=== PATIENT | male | born 1980 | race Caucasian/White ===

== ENCOUNTER 2023-12-12 14:12 | Emergency (ER) | payer BC, SELFPAY ==
--- NOTE | 2023-12-12 | ECG_ITS ---
Test Reason : ribl Blood Pressure : / mmHG Vent. Rate : 075 BPM Atrial Rate : 075 BPM P-R Int : 142 ms QRS Dur : 094 ms QT Int : 390 ms P-R-T Axes : 045 001 005 degrees QTc Int : 435 ms Normal sinus rhythm Normal ECG When compared with ECG of 12-DEC-2023 14:59, Left posterior fascicular block is no longer Present Referred By: Mason Mohr Electronically Signed By:LETI MARRERO MD
--- NOTE | ~2023-12-12 | CT_ITS ---
EXAMINATION: CT ABDOMEN AND PELVIS WITH CONTRAST CLINICAL INFORMATION: Right lower quadrant pain COMPARISON: None available. TECHNIQUE: Multidetector volumetric images were obtained from the superior aspect of the liver through the pubic symphysis following administration 100 mL of Omnipaque 350 intravenous contrast. Sagittal and coronal reformatted images were obtained on the technologist's workstation. Oral contrast: No This CT examination was performed using dose optimization techniques as appropriate, variously including the following: *Automated exposure control *Adjustment of mA and/or kV according to patient size (this includes techniques or standardized protocols for targeted exams where dose is matched to indication/reason for exam; i.e. extremities or head) *Use of iterative reconstruction technique DLP: 905 mGy-cm FINDINGS: LUNG BASES: The visualized lung bases are unremarkable. LIVER, GALLBLADDER, AND BILIARY TREE: The liver is normal in size, shape, and attenuation. No focal hepatic lesion or biliary ductal dilatation is present. The gallbladder is unremarkable with no evidence of radiopaque gallstones, gallbladder wall thickening, or obvious pericholecystic inflammatory changes. PANCREAS: Unremarkable. SPLEEN: Unremarkable. ADRENAL GLANDS: Unremarkable. KIDNEYS AND URETERS: The kidneys are normal in size, shape, and attenuation. Small nonobstructing left renal stones measuring 2 and 3 mm in the lower pole. Small bilateral renal cysts. No imaging follow-up recommended. BLADDER: Not optimally distended. There is stranding of the fat adjacent to the dome of the bladder likely from inflammatory process of the sigmoid colon. No abnormal air seen in the bladder to suggest fistula. GASTROINTESTINAL TRACT: Mild diverticulosis of the colon. There is wall thickening of the sigmoid colon. There is stranding of the adjacent fat that extends to the dome of the bladder. Findings are suggestive of mild sigmoid diverticulitis or colitis. The small and large bowel are otherwise unremarkable. The appendix is unremarkable. ABDOMINAL WALL: No significant hernia is appreciated. LYMPH NODES: Normal. VASCULAR: Unremarkable. PELVIC VISCERA: Unremarkable. OSSEOUS STRUCTURES: Mild degenerative changes of the spine. CT/CT abdomen pelvis w IV con IMPRESSION: Inflammatory changes of the sigmoid colon suggestive of diverticulitis or colitis. Inflammatory changes about the dome of the bladder. Small nonobstructing left renal stones. Fleischner guidelines were followed.
[2023-12-12 14:50] VITALS: BP 169/106; PULSE 88; RESP 16; TEMP 37.7; O2SAT 99; BMI 39.8
--- NOTE | 2023-12-12 14:50 | ED_ITS ---
HPI - General Adult General Chief complaint: Abdominal Pain Stated complaint: Abd pain R side 3 days Time Seen by Provider: 12/12/23 16:35 Source: patient, RN notes reviewed and old records reviewed Mode of arrival: ambulatory Limitations: no limitations History of Present Illness HPI narrative: 43-year-old male who denies any past medical history presents for evaluation of right-sided abdominal pain for the last 2 days. Patient's pain started in the right upper quadrant. His pain is now in the entire right midabdomen and radiates around to his back slightly. His pain is constant. He denies any nausea, vomiting or diarrhea. He does endorse feeling somewhat constipated His pain is achy, 4/10 He denies any history abdominal surgeries Denies any chest pain, cough, shortness of breath Patient reports a history of kidney stones but this feels different No other complaints or concerns at this time Related Data Previous Rx's ?Medication ?Instructions ?Recorded amoxicillin 875 mg-potassium 1 tab PO Q12H #14 tabs 12/12/23 clavulanate 125 mg tablet Allergies Allergy/AdvReac Type Severity Reaction Status Date / Time bee pollen [bee stings] Allergy Severe Anaphylaxis Verified 12/12/23 14:53 Review of Systems 2 Constitutional: Constitutional: Denies body ache(s), Denies chills and Denies fever(s) ENT: Denies sore throat Cardiovascular: Cardiovascular: Denies chest pain and Denies dyspnea Respiratory: Respiratory: Denies cough and Denies dyspnea Gastrointestinal: Gastrointestinal: Reports abdominal pain, Reports constipation, Denies diarrhea, Denies loose stools, Denies nausea and Denies vomiting Genitourinary: Genitourinary: Denies dysuria Musculoskeletal: Musculoskeletal: Denies back pain Integumentary/Breasts: Skin/Breast: Denies rash PMFSH Social History Social History Smoked in Last 30 Days: No Use of substances other than those prescribed or required for medical reasons: No Advance Directives: No Advance Directives Information Provided: No Physical Exam ED Vital Signs: Vital Signs - 24 hr 12/12/23 14:50 Temperature 99.9 F Pulse Rate 88 Respiratory Rate 16 Blood Pressure 169/106 H Pulse Oximetry 99 Oxygen Delivery Method Room Air BMI result Body Mass Index 39.8 Const General: healthy appearing, comfortable, no acute distress, alert and awake Nutritional Appearance: well nourished Orientation/consciousness: patient oriented x3 HENMT Head: Yes normocephalic and Yes atraumatic Eyes Eyelids: Yes eyelids normal Conjunctivae: conjunctivae normal Sclerae: sclerae normal Corneas: corneas normal Pupils: Equal, round and reactive pupils present EOM: EOMs intact bilaterally Neck Neck: Yes full ROM Resp Effort & Inspection: normal respiratory effort, able to speak in complete sentences and not labored Cardio Rate: regular rate Rhythm: regular rhythm GI Inspection: No distended Palpation (GI): Soft to palpation, not firm, Tenderness to palpation present (GI) in the RLQ and in the RUQ; not in the LLQ, not in the LUQ and Ruvalcaba's sign negative, no guarding and not rigid Skin General skin exam: elasticity normal Neuro General: patient oriented x3 Cranial nerves: Yes Equal, round and reactive pupils present and Yes Bilaterally intact EOM present Cognition (Neuro): normal cognition Extrem Other: Moving all extremities well without any obvious deformities Course Course Course Narrative: RME performed by Maddy Chavez PA-C. Patient is a 43 year old assigned male at presenting to the emergency department with right upper quadrant abdominal pain. Patient states that he has not been able to have a bowel movement for days and has pain there constantly that is getting worse. Detailed physical exam and review of systems are deferred to the body technician/painter. EKG, labs, imaging, and swabs ordered. Patient placed back in the waiting room pending room availability and results. Reevaluation(s) Reevaluation #1: Patient's CT scan shows acute uncomplicated diverticulitis. Discussed this with the patient. Discussed treatment options including Augmentin and liquid diet. Time: 19:41 Medications Administered Discontinued Medications Generic Name Dose Route Start Last Admin Trade Name Freq PRN Reason Stop Dose Admin Iohexol 100 ml 12/12/23 17:34 12/12/23 17:34 Iohexol 350 Mg/Ml 100 Ml Infus..Btl IV 12/12/23 17:35 100 ml ONCE ONE Administration Medical Decision Making Medical Decision Making MDM Narrative: 43-year-old male presents for evaluation abdominal pain for 3 days. Most likely diagnosis at this time is constipation. He is tender in the right upper quadrant the LFTs are within normal limits, he has no nausea vomiting, so I feel biliary disease is favored to be less likely. He does have some tenderness in the right lower quadrant raising suspicion for appendicitis. He has no white count. Plan for CT scan of the abdomen pelvis to rule this out and better evaluate the patient's abdominal pain. He has a history obstructive uropathy. Plan for UA but he says feels different from his previous kidney stones Differential Diagnosis Differential Diagnoses: The differential diagnosis associated with the presentation includes Constipation Obstructive uropathy Muscle strain Cholelithiasis Cholecystitis Acute appendicitis Muscle strain Admission/Observation Consideration of admission/observation: Escalation of care including admission/observation considered Insert admission for diverticulitis, however the patient's infection is uncomplicated, will treat with Augmentin and diet Lab Data MDM Lab Attestation statement: I reviewed the patient's lab results. No leukocytosis or anemia. Normal platelet count. Patient's sodium is elevated to 147. Potassium within normal limits at 4.8. Chloride is just above normal at 109. Patient's BUN is 17 which is just above normal but his creatinine is within normal limits at 0.99 12/12/23 15:10 12/12/23 15:10 Labs: Lab Results 12/12/23 12/12/23 Range/Units 15:10 17:15 WBC 9.1 (4.8-10.8) X10*3/uL RBC 5.03 (4.60-5.80) X10*6/uL Hgb 16.0 (14.0-18.0) g/dl Hct 44.5 (42.0-52.0) % MCV 88.5 (80.0-98.0) fL MCH 31.8 (27.0-33.0) pg MCHC 36.0 (31.0-36.0) g/dl RDW 12.2 (11.0-16.0) % Plt Count 326 (160-400) X10*3/uL MPV 9.2 L (9.4-12.4) fL Immature Gran % (Auto) 0.4 (0.0-0.4) % Neut % (Auto) 60.0 (45-73) % Lymph % (Auto) 28.4 (20-40) % [facility] % (Auto) 9.4 (2-11) % Eos % (Auto) 1.1 (0-4) % Baso % (Auto) 0.7 (0-2) % Lymph # (Auto) 2.6 (1.2-4.9) X10*3/uL [facility] [place] # (Auto) 0.9 (0.1-1.2) X10*3/uL Eos # (Auto) 0.1 (0.0-0.4) X10*3/uL Baso # (Auto) 0.1 (0.0-0.2) X10*3/uL Abs Immat Gran (auto) 0.04 H (0.00-0.03) X10*3/uL Absolute Neuts (auto) 5.4 (2.0-8.3) x10*3/uL Absolute Nucleated RBC 0.000 (0.0-0.012) X10*3/uL Nucleated RBC % (auto) 0.0 (0.0-0.2) /100WBC Sodium 147 H (135-145) mmol/L Potassium 4.8 (3.3-5.1) mmol/L Chloride 109 H (96-108) mmol/L Carbon Dioxide 25 (22-29) mmol/L Anion Gap 18 (12-20) BUN 17 H (9-16) mg/dL Creatinine 0.99 (0.5-1.4) mg/dL Estim Creat Clear Calc 117.9 Estimated GFR > 60 Random Glucose 102 (60-115) mg/dL Calcium 9.8 (8.4-10.2) mg/dL Magnesium 2.3 (1.6-2.6) mg/dL Total Bilirubin 0.5 (0.0-1.0) mg/dL AST 26 (5-37) U/L ALT 28 (0-40) U/L Alkaline Phosphatase 65 (39-117) U/L Troponin I High Sens < 2.7 (<3.5-35.0) ng/L Total Protein 7.6 (6.5-8.0) g/dL Albumin 4.3 (3.5-5.0) g/dL Urine Color Yellow Urine Appearance Clear Urine pH 6.5 (5.0-9.0) Ur Specific [place] 1.025 (1.005-1.025) Urine Protein Negative (Neg-Trace) mg/dL Urine Glucose (UA) Negative (Negative) mg/dL Urine Ketones Trace (Negative) mg/dL Urine Blood Negative (Negative) Urine Nitrite Negative (Negative) Ur Leukocyte Esterase Negative (Negative) Influenza Type A (PCR) NEGATIVE (Negative) Influenza Type B (PCR) NEGATIVE (Negative) RSV RNA Qual (PCR) NEGATIVE (Negative) SARS-CoV-2 RNA (RT-PCR) NEGATIVE (Negative) Independent Interpretation I performed an independent interpretation of an: CT Scan Interpretation: Agree with Radiology interpretation, uncomplicated diverticulitis Radiology Impression Discussion of test interpretation with radiology: I have reviewed the radiologist's reading. Radiologist Impression: CT/CT abdomen pelvis w IV con IMPRESSION: Inflammatory changes of the sigmoid colon suggestive of diverticulitis or colitis. Inflammatory changes about the dome of the bladder. Small nonobstructing left renal stones. Fleischner guidelines were followed. Discharge Plan Discharge Clinical Impression: Abdominal pain, Diverticulitis Patient Disposition: Home, Self-Care Instructions: Diverticulitis (ED), Diverticulitis Diet (ED) Additional Instructions: Your CT scan showed findings consistent with diverticulitis. This is an infection of your large intestine Take Augmentin twice daily for the next 7 days I recommend a liquid diet tomorrow and possibly the following day if you are still having lot of pain Return for new or worsening symptoms Prescriptions: New amoxicillin-pot clavulanate 875-125 mg tablet 1 tab PO Q12H Qty: 14 0RF Print Language: Indian
--- NOTE | 2023-12-12 14:52 | ECG_ITS ---
Test Reason : abd pain Blood Pressure : / mmHG Vent. Rate : 071 BPM Atrial Rate : 071 BPM P-R Int : 132 ms QRS Dur : 098 ms QT Int : 400 ms P-R-T Axes : 000 179 174 degrees QTc Int : 434 ms Suspect limb lead reversal, interpretation assumes no reversal Normal sinus rhythm Left posterior fascicular block Inferior infarct , age undetermined Abnormal ECG No previous ECGs available Repeat EKG Referred By: Maddy Chavez Electronically Signed By:LETI MARRERO MD
[2023-12-12 15:16] LABS: MANUAL DIFF FLAG NO
[2023-12-12 15:17] LABS: Basophils Absolute Auto 0.1 X10*3/uL (0.0-0.2); Basophils Percent Auto 0.7 % (0-2); Eosinophils Absolute Auto 0.1 X10*3/uL (0.0-0.4); Eosinophils Percent Auto 1.1 % (0-4); Hematocrit 44.5 % (42.0-52.0); Imm Gran Abs Auto 0.04 X10*3/uL (0.00-0.03); Imm Gran Pct Auto 0.4 % (0.0-0.4); Lymphocytes Absolute Auto 2.6 X10*3/uL (1.2-4.9); Lymphocytes Percent Auto 28.4 % (20-40); Mean Corpuscular Hemoglobin 31.8 pg (27.0-33.0); Mean Corpuscular Volume 88.5 fL (80.0-98.0); Mean Platelet Volume 9.2 fL (9.4-12.4); Monocytes Absolute Auto 0.9 X10*3/uL (0.1-1.2); Monocytes Percent Auto 9.4 % (2-11); Neutrophils Absolute Auto 5.4 x10*3/uL (2.0-8.3); Platelet Count 326 X10*3/uL (160-400); Red Blood Count 5.03 X10*6/uL (4.60-5.80); Red Cell Distribution Width 12.2 % (11.0-16.0); White Blood Count 9.1 X10*3/uL (4.8-10.8)
[2023-12-12 15:37] LABS: Alanine Aminotransferase 28 U/L (0-40); Albumin Level 4.3 g/dL (3.5-5.0); Alkaline Phosphatase 65 U/L (39-117); Anion Gap 18 (12-20); Aspartate Amino Transferase 26 U/L (5-37); Bilirubin Total 0.5 mg/dL (0.0-1.0); Blood Urea Nitrogen 17 mg/dL (9-16); Calcium 9.8 mg/dL (8.4-10.2); Carbon Dioxide 25 mmol/L (22-29); Chloride 109 mmol/L (96-108); Creatinine Clr Calc Pharmacy 117.9; Estimated Glomerular Filt Rate > 60; Glucose Random 102 mg/dL (60-115); Magnesium 2.3 mg/dL (1.6-2.6); Potassium 4.8 mmol/L (3.3-5.1); Sodium 147 mmol/L (135-145); Total Protein 7.6 g/dL (6.5-8.0)
[2023-12-12 15:40] LABS: Troponin-I High Sensitivity < 2.7 ng/L (<3.5-35.0)
[2023-12-12 15:55] LABS: Influenza A PCR NEGATIVE (Negative); Influenza B PCR NEGATIVE (Negative); Resp Syncy Virus RNA Qual PCR NEGATIVE (Negative); SARS COV2 PCR INHOUSE NEGATIVE (Negative)
--- NOTE | 2023-12-12 17:19 | PC.NURSE ---
a&ox4. vss and up to date. pt from home d/t RUQ x 2 days. denies radiation/n/v/d/urinary sx aside from stating that his bladder feels full after urinating. abd tender upon palpation. UA obtained/sent to lab. 20gIV placed in the right AC. pt waiting to go to CT at this time. no sob/wob noted. respirations even and unlabored. plan of care ongoing. call de león placed within reach.
[2023-12-12 17:24] LABS: Appearance Urine Clear; Color Urine Yellow; Glucose Urine UA Negative (Negative); Leukocyte Esterase Urine Negative (Negative); Nitrite Urine Negative (Negative); PH 6.5 (5.0-9.0); Specific Gravity - Urine 1.025 (1.005-1.025); Urine Blood Negative (Negative); Urine Ketones Trace mg/dL (Negative); Urine Protein Negative (Neg-Trace)
[2023-12-12] MEDS: iohexoL 350 MG/ML 100 ML INFUS..BTL IV (17:34)
--- OUTSIDE RECORDS SUMMARY | 2023-12-12 18:29 | XMS_ITS | Continuity of Care Document ---
Author Organization [facility] Address [address] [place] [address]- Care Team Providers Care Papeterie Table Assembler Name Role Phone Sunny Landis MD Primary Care Physician [id number] Date(s): 07/15/23 - 08/14/23 [facility] [address] [address]- [place] Attending Physician: Nancie Martin Admitting Physician: Nancie Martin Referring Physician: AdmtrNancie Allergies, Adverse Reactions, Alerts Substance Reaction Severity Status Bee Stings Active Medications cyclobenzaprine 5 mg oral tablet TAKE 1 TO 2 TABLETS BY MOUTH 3 TIMES A DAY NEEDED FOR MUSCLE SPASM Start Date: 09/19/22 Status: Ordered sertraline 100 mg oral tablet 0.5 tablet = 50 mg, By Mouth, Daily, take 50 mg po daily, 0 Refills, Maintenance, 03/22/17 16:17:39EDT, Tablet Start Date: 03/22/17 Status: Ordered valsartan 160 mg oral tablet Refills 0, Maintenance, 09/19/22 13:56:00 EST, Partial fill upon patient request if the prescription is for a schedule II opioid drug. Start Date: 09/19/22 Status: Ordered Problem List Condition Confirmation Course Effective Dates Status Health St atus Informant Atopic dermatitis Confirmed Active History of kidney stones Confirmed Active Hyperlipemia Confirmed Active Hypertension Confirmed Active Obesity Confirmed Active Obstructive sleep apnea Confirmed Active Social History Social History Type Response Smoking Status Never smoker entered on: 03/22/17 Sex Patient Care team information Care Team Personnel Name: Sunny Landis MD Position: Reference Physician Member Role: PCP Address: Address: [address] [place] [address]- [place] Care Team Related Persons Name: SIXTO JENNIFER Address: home [address] [place] [address] Name: LEANA HENSON Address: home [address] [facility]/[place] [address]
--- OUTSIDE RECORDS SUMMARY | 2023-12-12 18:29 | XMS_ITS | Continuity of Care Document ---
Author Organization [facility] Address [address] [place] [address]- Care Team Providers Care Mounter Smoking Pipe Name Role Phone Case Kapoor MD Primary Care Physician [phone] Encounter [facility] Date(s): 02/01/20 - 02/01/[address] [address]- [facility] Discharge Disposition: A-D/C Home Attending Physician: Nnamdi Lackey MD Admitting Physician: Nnamdi Lackey MD Referring Physician: Not on Staff, Referring MD Allergies, Adverse Reactions, Alerts Substance Reaction Severity Status Bee Stings Active Medications sertraline 100 mg oral tablet 0.5 tablet = 50 mg, By Mouth, Daily, take 50 mg po daily, 0 Refills, Maintenance, 03/22/17 16:17:39EDT, Tablet Start Date: 03/22/17 Status: Ordered Vital Signs Most recent to oldest [Reference Range]: 1 2 Height 173 cm (02/01/20 12:41 PM) 173 cm (02/01/20 12:39 PM) Weight 118.5 kg (02/01/20 12:41 PM) 118.5 kg (02/01/20 12:39 PM) Oxygen Saturation [94-100 %] 100 % (02/01/20 12:39 PM) Pulse Rate [55-90 bpm] 82 bpm (02/01/20 12:39 PM) Body Mass Index [18.5-24.99] 39.59 *>HHI* (02/01/20 12:39 PM) Blood Pressure [90-138/55-84 mm Hg] 157/ 100mm Hg *H* (02/01/20 12:39 PM) Respiratory Rate [16-30 br/min] 18 br/mi n (02/01/20 12:39 PM) Temperature [96.8-100.4 DegF] 98.0 DegF (02/01/20 12:39 PM) Mode of Delivery (Oxygen) Room air (02/01/20 12:39 PM) Blood pressure sites Arm, right (02/01/20 12:39 PM) Temperature Route Oral (02/01/20 12:39 PM) Dry Weight 118.5 kg (02/01/20 12:41 PM) 118.5 kg (02/01/20 12:39 PM) Weight Obtained Via Patient/family state d (02/01/20 12:39 PM) Dry Weight Obtained Via Patient/family s tated (02/01/20 12:39 PM) Social History Social History Type Response Smoking Status Never smoker entered on: 03/22/17 Sex
--- OUTSIDE RECORDS SUMMARY | 2023-12-12 18:29 | XMS_ITS | Continuity of Care Document ---
Author Organization [facility] Address [address] [place] [address]- Care Team Providers Care Die Fitter Name Role Phone Sunny Landis MD Primary Care Physician [id number] Date(s): 09/02/23 - 10/02/23 [facility] [address] [address] Allergies, Adverse Reactions, Alerts Substance Reaction Severity [...] Reference Physician Member Role: PCP Address: Address: [address] [place] [address]- [place] Care Team Related Persons Name: JENNIFER HENSON Address: home [address] [place] [address] Name: LEANA HENSON Address: home [address] [facility]/[place] [address]
--- OUTSIDE RECORDS SUMMARY | 2023-12-12 18:29 | XMS_ITS | Continuity of Care Document ---
Author Organization [facility] Judith michel Address [address] [place] [address] [address] [place] [address]- Care Team Providers Care Ingot Stripper Name Role Phone Case Kapoor MD Primary Care Physician Encounter [facility] Date(s): 11/25/20 - 12/25/20 [facility] [address] [place] [address]- Attending Physician: Nancie Martin Admitting Physician: Nancie Martin Referring Physician: Admtr ArHaydee Allergies, Adverse Reactions, Alerts Substance Reaction Severity Status Bee Stings Active Medications sertraline 100 mg oral tablet 0.5 tablet = 50 mg, By Mouth, Daily, take 50 mg po daily, 0 Refills, Maintenance, 03/22/17 16:17:39EDT, Tablet Start Date: 03/22/17 Status: Ordered Social History Social History Type Response Smoking Status Never smoker entered on: 03/22/17 Sex
--- OUTSIDE RECORDS SUMMARY | 2023-12-12 18:29 | XMS_ITS | Continuity of Care Document ---
Author Organization [facility] Address [address] [place] [address]- Care Team Providers Care Eight Section Blower Name Role Phone Case Kapoor MD Primary Care Physician [phone] Encounter [facility] Date(s): 03/14/20 - 03/14/[address] [address]- [facility] Discharge Disposition: A-D/C Home Attending Physician: Kyle Reddy MD Admitting Physician: Kyle Reddy MD Referring Physician: Not on Staff, Referring MD Allergies, Adverse Reactions, Alerts Substance Reaction Severity Status Bee Stings Active Medications sertraline 100 mg oral tablet 0.5 tablet = 50 mg, By Mouth, Daily, take 50 mg po daily, 0 Refills, Maintenance, 03/22/17 16:17:39EDT, Tablet Start Date: 03/22/17 Status: Ordered Vital Signs Most recent to oldest [Reference Range]: 1 2 3 Height 173 cm (03/14/20 4:13 AM) Weight 123.1 kg (03/14/20 4:13 AM) Oxygen Saturation [94-100 %] 97 % (03/14/20 5:35 AM) 100 % (03/14/20 4:13 AM) Pulse Rate [55-90 bpm] 71 bpm (03/14/20 5:35 AM) 65 bpm (03/14/20 4:13 AM) Blood Pressure [90-138/55-84 mm Hg] 141/75mm Hg *H* (03/14/20 5:35 AM) 177/106mm Hg *H* (03/14/20 4:13 AM) Respiratory Rate [16-30 br/min] 19 br/min (03/14/20 6:04 AM) 16 br/min (03/14/20 5:45 AM) 17 br/min (03/14/20 5:35 AM) Temperature [96.8-100.4 DegF] 96.0 DegF *L* (03/14/20 4:13 AM) Mode of Delivery (Oxygen) Room air (03/14/20 5:35 AM) Room air (03/14/20 4:13 AM) Blood pressure sites Arm, left (03/14/20 5:35 AM) Arm, left (03/14/20 4:13 AM) Temperature Route Oral (03/14/20 4:13 AM) Dry Weight 123.1 kg (03/14/20 4:13 AM) Weight Obtained Via Standing scale (03/14/20 4:13 AM) Dry Weight Obtained Via Standing scale (03/14/20 4:13 AM) Social History Social History Type Response Smoking Status Never smoker entered on: 03/22/17 Sex
--- OUTSIDE RECORDS SUMMARY | 2023-12-12 18:29 | XMS_ITS | Continuity of Care Document ---
Author Organization [facility] Ann Staples [facility] Address [address] [address]- Care Team Providers Care Principal Architectural Firm Name Role Phone Case Kapoor MD Primary Care Physician [phone] Encounter [facility] Date(s): 02/05/20 - 03/06/20 [facility] [address] [address]- [facility] Attending Physician: Nancie Martin Admitting Physician: Nancie Martin Referring Physician: Nancie Martin Allergies, Adverse Reactions, Alerts Substance Reaction Severity Status Bee Stings Active Medications sertraline 100 mg oral tablet 0.5 tablet = 50 mg, By Mouth, Daily, take 50 mg po daily, 0 Refills, Maintenance, 03/22/17 16:17:39EDT, Tablet Start Date: 03/22/17 Status: Ordered Social History Social History Type Response Smoking Status Never smoker entered on: 03/22/17 Sex
--- OUTSIDE RECORDS SUMMARY | 2023-12-12 18:29 | XMS_ITS | Continuity of Care Document ---
Author Organization [facility] Address [address] [place] [address]- Care Team Providers Care Security Engineer Name Role Phone Sunny Landis MD Primary Care Physician [id number] Date(s): 08/22/23 - 09/21/[address] [address] Allergies, Adverse Reactions, Alerts Substance Reaction Severity [...] Reference Physician Member Role: PCP Address: Address: [address] [place] [address]- [place] Care Team Related Persons Name: JENNIFER HENSON Address: home [address] [place] [address] Name: LEANA HENSON Address: home [address] [facility]/[place] [address]
--- OUTSIDE RECORDS SUMMARY | 2023-12-12 18:29 | XMS_ITS | Continuity of Care Document ---
Author Organization [facility] Judith michel Address [address] [place], [place] [address]i ve [address] [place] [address]- Care Team Providers Care Director Of Employee Development Name Role Phone Case Kapoor MD Primary Care Physician [phone] [facility] Date(s): 11/04/20 - 12/25/[address] [place], [place] [address] Attending Physician: Kyle Henson MD Referring Physician: Christy Landis CH Allergies, Adverse Reactions, Alerts Substance Reaction Severity Status Bee Stings Active Medications sertraline 100 mg oral tablet 0.5 tablet = 50 mg, By Mouth, Daily, take 50 mg po daily, 0 Refills, Maintenance, 03/22/17 16:17:39EDT, Tablet Start Date: 03/22/17 Status: Ordered Social History Social History Type Response Smoking Status Never smoker entered on: 03/22/17 Sex
--- OUTSIDE RECORDS SUMMARY | 2023-12-12 18:29 | XMS_ITS | Continuity of Care Document ---
Author Organization [facility] Address [address] [place] [address]- Care Team Providers Care Php Developer Name Role Phone Case Kapoor MD Primary Care Physician Encounter [facility] Date(s): 09/15/19 - 09/15/[address] [address]- [facility] Attending Physician: Case Kapoor MD Allergies, Adverse Reactions, Alerts Substance Reaction Severity Status Bee Stings Active Medications sertraline 100 mg oral tablet 1 tablet = 100 mg, By Mouth, Daily, # 30 tablet, 0 Refills, Maintenance, 03/22/17 16:17:39, Tablet Start Date: 03/22/17 Status: Ordered Social History Social History Type Response Smoking Status Never smoker entered on: 03/22/17 Sex
--- OUTSIDE RECORDS SUMMARY | 2023-12-12 18:29 | XMS_ITS | Continuity of Care Document ---
Author Organization [facility] Ann Staples [facility] Address [address] [address]- Care Team Providers Care Crane Operator Name Role Phone Case Kapoor MD Primary Care Physician [phone] [facility] Date(s): 02/02/20 - 03/06/20 [facility] [address] [address]- [facility] Attending Physician: Celso Garcia MD Referring Physician: Not on Staff, Referring [...]
--- OUTSIDE RECORDS SUMMARY | 2023-12-12 18:29 | XMS_ITS | Continuity of Care Document ---
Author Organization [facility] Address [address] [place] [address]- Care Team Providers Care Shot Peen Operator Name Role Phone Sunny Landis MD Primary Care Physician [phone] [id number] Date(s): 06/05/22 - 10/03/22 [facility] [address] [address] [place] Attending Physician: Jose Archibald MD Admitting Physician: Jose Archibald MD Referring Physician: Case Kapoor MD Allergies, Adverse Reactions, [...] Reference Physician Member Role: PCP Address: Address: [address] [place] [address]- [place] Care Team Related Persons Name: JENNIFER HENSON Address: home [address] [place] [address] Name: LEANA HENSON Address: home [address] [facility]/[place] [address]
[2023-12-12 20:11] VITALS: BP 146/89; PULSE 68; RESP 15; TEMP 36.8; O2SAT 97
[2023-12-12] MEDS: Amoxicillin/Potassium Clav 875 MG TABLET PO (20:11)
== END 2023-12-12 20:18 | disposition home or self-care (01) ==
PROVIDERS: Physician Assistant Medical; Emergency Provider Internal Medicine; PCP Internal Medicine
DX: K57.32 Diverticulitis of large intestine without perforation or abscess without bleeding (principal); R10.11 Right upper quadrant pain; Z87.442 Personal history of urinary calculi; Z03.818 Encounter for observation for suspected exposure to other biological agents ruled out
CPT/HCPCS: 0241U; 74177; 80053; 81003; 83735; 84484; 85025; 93005; 99284; 99285; Q9967

== ENCOUNTER → 2023-12-12 14:52 | Outpatient (BNV) | payer SELFPAY | PROVIDERS: Emergency Provider Internal Medicine; PCP Internal Medicine; Visit Provider Internal Medicine Cardiovascular Disease | DX: R94.31 Abnormal electrocardiogram [ECG] [EKG] (principal) | CPT/HCPCS: 93010 ==

== ENCOUNTER 2024-05-01 04:22 | Emergency (ER) | payer BC, SELFPAY ==
[2024-05-01 04:29] VITALS: BP 153/101; PULSE 78; RESP 16; TEMP 37; O2SAT 97; BMI 39.6
[2024-05-01 04:45] VITALS: BP 153/101; PULSE 77; RESP 18; TEMP 36.5; O2SAT 98
--- NOTE | 2024-05-01 04:58 | ED_ITS ---
HPI - Extremity Problem General Chief complaint: Extremity Problem Stated complaint: left bicep/ thinks its torn Time Seen by Provider: 05/01/24 04:43 Source: patient Mode of arrival: ambulatory Limitations: no limitations History of Present Illness ED Provider: MICHEAL JOHNSON Narrative: 44 yo male R hand dominant here with L biceps injury on Saturday after scooping up softball during game he felt a weird pulling painful sensation and the biceps felt different after. He then felt a pop yesterday at work and has had pain and really unable to do much or pull with that arm. No numbness or weakness. He is worried he ruptured his bicep. MD Complaint: extremity pain and extremity swelling Onset (ago): day(s) (Saturday) Pain Consistency: constant Location: left and upper extremity Quality: aching Radiation: distal Relieving factors: immobilization Exacerbating factors: range of motion and palpation Associated symptoms: denies other symptoms Context: other (felt pop) Related Data Previous Rx's ?Medication ?Instructions ?Recorded amoxicillin 875 mg-potassium 1 tab PO Q12H #14 tabs 12/12/23 clavulanate 125 mg tablet Allergies Allergy/AdvReac Type Severity Reaction Status Date / Time bee pollen [bee stings] Allergy Severe Anaphylaxis Verified 05/01/24 04:29 Review of Systems Review of Systems: Constitutional : No Fever, No Chills Cardiovascular : No Chest Pain, No SOB Respiratory : No Cough, No Dyspnea Gastrointestinal : No Nausea, No Vomiting, No Diarrhea, No abdominal Pain Musculoskeletal : positive joint pain, No Myalgias, No Joint Swelling Skin : No Skin lacerations, No rash Neuro : No Weakness, No Numbness, No Loss of Consciousness, No Dizziness All other systems reviewed and are negative [facility] Past Medical History Attestation statement: The following information was validated with the patient. Source: old records reviewed Social History Social History Smoked in Last 30 Days: No Substance Use Type: Marijuana Advance Directives: No Advance Directives Information Provided: No Physical Exam Vital Signs: Vital Signs: Last Vital Signs Temp 97.7 F 05/01/24 04:45 Pulse 77 05/01/24 04:45 Resp 18 05/01/24 04:45 BP 153/101 H 05/01/24 04:45 Pulse Ox 98 05/01/24 04:45 O2 Del Method Room Air 10/04/24 04:45 BMI result Body Mass Index 39.6 Appearance: Alert. Oriented X3. No acute distress. Eyes: Pupils equal, round and reactive to light. ENT: Pharynx normal. Neck: Normal inspection. CVS: Normal heart rate and rhythm. Pulses normal. Respiratory: No respiratory distress. Abdomen: atraumatic Skin: Skin warm and dry. Normal skin color. Extremities: L bicep can feel one insertion medially but biceps muscle is retracted and he cannot fully flex the muscle distal NV intact, ttp along the bicep no bruising noted. Neuro: Oriented X 3. No motor deficit. No sensory deficit. Medical Decision Making Medical Decision Making MDM Narrative: 44 yo male with L biceps injury concern for partial vs full tendon rupture - he is distal NV intact at this time xrays not indicated and he will need sling as well as outpatient MRI and orthopedics follow up. He is aware he cannot use arm and work right now Differential Diagnosis Differential Diagnoses: The differential diagnosis associated with the presentation includes biceps tendon rupture Prescription Management I considered prescription management with: Pain Medication Discharge Plan Discharge Clinical Impression: Injury of tendon of biceps Patient Disposition: Home, Self-Care Instructions: Tendon Rupture (ED) Additional Instructions: wear sling for comfort but move wrist and shoulder can take off for sleep and shower return for numbness, weakness, cold blue hand concern for partial to full biceps tendon rupture vs biceps muscle tear do not lift with that arm you need MRI of the tendon call orthopedics or PCP today Prescriptions: No Action amoxicillin-pot clavulanate 875-125 mg tablet 1 tab PO Q12H Qty: 14 0RF [place] [facility] [place] [facility] [place] Group[place] Stand Alone Forms: Work/School Release Print Language: Telugu
[2024-05-01 05:13] VITALS: BP 153/101; PULSE 77; RESP 18; TEMP 36.5; O2SAT 98
== END 2024-05-01 05:13 | disposition home or self-care (01) ==
PROVIDERS: Emergency Provider Emergency Medicine; PCP Internal Medicine
DX: S46.202A Unspecified injury of muscle, fascia and tendon of other parts of biceps, left arm, initial encounter (principal); X50.9XXA Other and unspecified overexertion or strenuous movements or postures, initial encounter; Y93.64 Activity, baseball; Y92.320 Baseball field as the place of occurrence of the external cause; Y99.9 Unspecified external cause status
CPT/HCPCS: 99282; 99284